=== PATIENT | female | born 1960 | race Caucasian/White ===

== ENCOUNTER 2016-12-07 07:04 | Emergency (ER) | payer OTHER ==
[2016-12-07 07:24] VITALS: BP 151/97
--- NOTE | 2016-12-07 07:32 | UC ---
UC General HPI - HPI Summary HPI Summary: The patient comes in today for: 1. "Reaction of my eyes"--swelling, itchy eyes, watering, "most of my face itches," Onset: This morning Palliative/provocative: Benadryl helped. Quality: Itching. Region: Periorbital Severity: 11/10 Time: Constant. Associated symptoms: "This is far better than what it was. When I woke up this morning I couldn' t even open my eyes. But, I took 25 mg of Benadryl and it is much better." "I'm allergic to my dog and cat." "I take Karolina daily." "I've got no difficulty breathing." Allergies: She states that she is allergic to lanolin. She has been on steroids in the past. * - History of Current Complaint Chief Complaint: UCAllergicReaction Stated Complaint: ALLERGIC SWELLING-EYES Time Seen by Provider: 12/07/16 07:22 Hx Obtained From: Patient - Allergy/Home Medications Allergies/Adverse Reactions: Allergies Allergy/AdvReac Type Severity Reaction Status Date / Time Tramadol [From [facility]] Allergy Severe IN AND OUT Verified 12/07/16 07:10 OF CONSCIOUSNESS Ampicillin Allergy Rash Verified 12/07/16 07:10 Lanolin Allergy Rash And Verified 12/07/16 07:24 Itching ENVIRONMENTAL/HAYFEVER Allergy RUNNY Uncoded 12/07/16 07:10 NOSE, ITCHY WATERY EYES Home Medications: Home Medications Diphenhydramine HCl [Eql Allergy Relief] 1 cap PO Q6HR PRN 12/07/16 [History Confirmed 12/07/16] Fexofenadine HCl [Allergy 24-Hr] 1 tab PO DAILY 12/07/16 [History Confirmed 02/17] Fluorometholone 0.1% OPTH.KWAN* [Fml 0.1% Opth.susp*] 1 drop OPHTHALMIC BID 12/07 [History Confirmed 12/07/16] PMH/Surg Hx/FS Hx/Imm Hx Endocrine History Of: Reports: Diabetes, Dyslipidemia Denies: Thyroid Disease, Hyperthyroidism, Hypothyroidism Cardiovascular History Of: Denies: Cardiac Disorders, Hypertension, Pacemaker/ICD, Myocardial Infarction , Congestive Heart Failure, Atrial Fibrillation, Deep Vein Thrombosis, Bleeding Disorders Respiratory History Of: Reports: Asthma Denies: COPD, Bronchitis, Pneumonia, Pulmonary Embolism GI/ History Of: Reports: Kidney Stones - POSSIBLE 3 YEARS AGO, NO REOCCURENCE Denies: Gastroesophageal Reflux, Ulcer, Gastrointestinal Bleed, Gall Bladder Disease, Diverticulitis, Renal Disease, Urosepsis Neurological History Of: Reports: Migraine - TWICE A YEAR Denies: TIA, CVA, Dementia, Seizures Psychological History Of: Denies: Anxiety, Depression, Bipolar Disorder, Schizophrenia, Post Traumatic Stress Disorder Cancer History Of: Denies: Lung Cancer, Colorectal Cancer, Breast Cancer, Cervical Cancer Other History Of: Negative For: HIV, Hepatitis B, Hepatitis C, Anticoagulant Therapy - Surgical History Surgical History: Yes Surgery Procedure, Year, and Place: cataract bilat (Oct 2015) - Family History Known Family History: Positive: Hypertension, Diabetes - Social History Occupation: Employed Full-time Alcohol Use: Occasionally Alcohol Amount: SOCIALLY Substance Use Type: Marijuana Substance Use Comment - Amount & Last Used: OCCASIONALLY Smoking Status (MU): Former Smoker Type: Cigarettes Amount Used/How Often: 1 PPD Length of Time of Smoking/Using Tobacco: 2-3 YEARS Have You Smoked in the Last Year: No When Did the Patient Quit Smoking/Using Tobacco: 1986 - Immunization History Most Recent Influenza Vaccination: jun 2015 Review of Systems Constitutional: Negative Skin: Negative Eyes: Negative ENT: Negative Respiratory: Negative Cardiovascular: Negative Gastrointestinal: Negative Genitourinary: Negative All Other Systems Reviewed And Are Negative: Yes Physical Exam Triage Information Reviewed: Yes Appearance: Well-Appearing, No Pain Distress, Well-Nourished Vital Signs: Initial Vital Signs Temp 97.9 F 12/07/16 07:14 Pulse 58 12/07/16 07:14 Resp 16 12/07/16 07:14 BP 151/97 12/07/16 07:14 Pulse Ox 99 12/07/16 07:14 She states that her blood pressure usually is more like 114/70. Vital Signs Reviewed: Yes Eyes: Positive: Conjunctiva Clear, Other: - Both upper eye lids are swollen. There is no marked warmth or erythema. No pain with EOM.. Negative: Discharge ENT: Positive: Hearing grossly normal. Negative: Pharyngeal erythema, Nasal congestion, Nasal drainage, TM bulging, TM dull, TM red, Tonsillar swelling, Tonsillar exudate Neck: Positive: Supple, Nontender Respiratory: Positive: Chest non-tender, Lungs clear, No respiratory distress, No accessory muscle use. Negative: Crackles, Wheezing Cardiovascular: Positive: RRR, No Murmur Abdomen Description: Positive: Nontender, No Organomegaly, Soft. Negative: Distended, Guarding Musculoskeletal: Positive: Strength Intact, ROM Intact, No Edema Neurological: Positive: Alert, Muscle Tone Normal Psychological: Positive: Age Appropriate Behavior, Consolable Skin: Negative: rashes, breakdown Course/Dx - Course Course Of Treatment: Patient was told that her condition suggestion an allergic reaction. Treatment options were explained and she was told what to look for in terms of infection. - Differential Dx - Multi-Symptom Provider Diagnoses: high blood pressure. Allergic reaction. Discharge - Discharge Plan Condition: Stable Disposition: HOME Patient Education Materials: General Allergic Reaction (ED) Referrals: Keagan Vazquez MD [Primary Care Provider] - 1 Week (Please see your primary care provider in a week to see how well you are doing. If you get worse, please be seen sooner in the ER or through us.)
== END 2016-12-07 08:00 | disposition home or self-care (01) ==
LOC: UCEAST 07:04
DX: T78.40XA Allergy, unspecified, initial encounter (principal); X58.XXXA Exposure to other specified factors, initial encounter; E11.9 Type 2 diabetes mellitus without complications; Z88.0 Allergy status to penicillin; E78.5 Hyperlipidemia, unspecified; R03.0 Elevated blood-pressure reading, without diagnosis of hypertension
CPT/HCPCS: 99212; G0463